=== PATIENT | female | born 1985 | race Caucasian/White ===

== ENCOUNTER 2019-06-02 12:03 | Emergency (ER) | payer BC, OTHER ==
[2019-06-02 12:14] VITALS: BP 111/64
--- NOTE | 2019-06-02 13:00 | UC ---
Abdominal Pain Female HPI - HPI Summary HPI Summary: 7 patient presents to urgent care for evaluation of vaginal itching and burning. Patient states for 3 days and has been progressive. Patient reports thick white discharge. Patient has been using [id number] Monistat and seems to be worse. Patient states everything is "inflamed. "Patient denies dysuria or hematuria. Patient reports mild lower abdominal cramping. Patient' s areas are irregular she states she is not . Patient recently completed a course of antibiotics for a left ear infection that has since improved. Patient has no concerns about STD I's she's in this relationship. Patient's medications reviewed this visit. - History of Current Complaint Chief Complaint: UCAbdominalPain Stated Complaint: ABDOMINAL AND PELVIC PAIN Time Seen by Provider: 06/02/19 12:26 Hx Last Menstrual Period: first week of May ?: Yes Pain Intensity: 6 Allergies/Adverse Reactions: Allergies Allergy/AdvReac Type Severity Reaction Status Date / Time Bee Stings Allergy Severe Hives Uncoded 06/02/19 12:14 Home Medications: Home Medications Acetaminophen TAB* [Tylenol TAB*] 325 mg PO Q4H PRN 06/02/19 [History Confirmed 06/02/19] PMH/Surg Hx/FS Hx/Imm Hx Previously Healthy: Yes - Surgical History Surgical History: Yes Surgery Procedure, Year, and Place: 2010 REMOVAL OF IUD [facility] - Social History Alcohol Use: Rare Substance Use Type: None Smoking Status (MU): Never Smoked Tobacco - Immunization History Most Recent Influenza Vaccination: 05/2015 Most Recent Tetanus Shot: 12/27/15 Most Recent Pneumonia Vaccination: none Review of Systems All Other Systems Reviewed And Are Negative: Yes Constitutional: Positive: Negative Skin: Positive: Negative Genitourinary: Positive: Vaginal/Penile Itching, Vaginal/Penile Discharge. Negative: Vaginal/Penile Pain Physical Exam - Summary Physical Exam Summary: Vital Signs Reviewed: Yes A+Ox3, no distress Eyes: Conjunctiva Clear, ZARA. EOM intact and full ENT: Hearing grossly normal TM x 2 clear, mmoist, uvula midline, no exudate, no erythema Neck: Positive: Supple Respiratory: Positive: No respiratory distress, No accessory muscle use + CTA throughout no w/r Cardiovascular: RRR nl s1, s2 no m/r CBT <2 sec abd soft + BS nt/nd no guarding, no distension, no CVA : Nurse Izabel at bedside for exam - Pt with thick, white discharge - pt with inflammed mucosa. No open lesions Musculoskeletal Exam: FLORENTINO x 4 without difficulty Strength Intact, ROM Intact Neurological: Positive: Alert, + sensation throughout Psychological: Positive: Normal Response To examiner Skin: Positive: no rash, no ecchymosis Triage Information Reviewed: Yes Vital Signs: Initial Vital Signs Temp 98.4 F 06/02/19 12:08 Pulse 80 06/02/19 12:08 Resp 16 06/02/19 12:08 BP 111/64 06/02/19 12:08 Pulse Ox 98 06/02/19 12:08 Abd Pain Female Course/Dx - Course Course Of Treatment: Pt presents to ED for eval of vaginal discharge - progressive x 3 days. Pt has used OTC meds with little improvement with symptoms. itching, buring. VSS Pt with thick, white discharge - evidence of monistat culture taken recommend diflucan will culutre return precautions pt comfortable and in agreement with plan - Differential Dx/Diagnosis Provider Diagnosis: Vaginitis Discharge ED - Sign-Out/Discharge Documenting (check all that apply): Patient Departure All imaging exams completed and their final reports reviewed: No Studies - Discharge Plan Condition: Stable Disposition: HOME Prescriptions: Fluconazole [Diflucan 150 MG (NF)] 150 mg PO ONCE PRN #1 tab PRN Reason: vaginal yeast infection Patient Education Materials: Vaginitis (ED) Referrals: No Primary Care Phys,NOPCP [Primary Care Provider] - Additional Instructions: - Stay well hydrated. Drink plenty of non-alcoholic, non-caffinated beverages - eat and drink regular, healthy meals - Okay to put vasoline on your labia if urine ahuja your irritated skin - Take 1 time dose for yeast infection today - if you continue to have symptoms , take the second after 3 days - your sample has been sent for additional testing - if you need a different treatment, you will receive a call from a care sales team recruiter. This may take 2-3 days - contact your doctor or return with questions or concerns - Billing Disposition and Condition Condition: STABLE Disposition: Home
== END 2019-06-02 13:20 | disposition home or self-care (01) ==
LOC: UCEAST 12:03
DX: N76.0 Acute vaginitis (principal); Z91.030 Bee allergy status
CPT/HCPCS: 81003; 84702; 87480; 87510; 99202; G0463